=== PATIENT | female | born 1995 | race Two or more races ===

== ENCOUNTER 2022-05-19 12:40 | Emergency (ER) | payer OTHER ==
[2022-05-19 13:00] VITALS: TEMP 98.2; BMI 41.3
[2022-05-19 14:34] LABS: URINE APPEARANCE TURBID; URINE BILIRUBIN NEGATIVE (NEGATIVE); URINE COLOR YELLOW; URINE GLUCOSE (UA) NEGATIVE (NEGATIVE); URINE KETONE NEGATIVE (NEGATIVE); URINE LEUK ESTERASE NEGATIVE (NEGATIVE); URINE NITRITE NEGATIVE (NEGATIVE); URINE PROTEIN TRACE (NEGATIVE); URINE UROBILINOGEN 0.2 mg/dL (0.2-1.0)
[2022-05-19 15:07] VITALS: BP 128/68; PULSE 81; RESP 19
== END 2022-05-19 15:07 | disposition home or self-care (01) ==
LOC: JERFT 12:40 → JER 12:40 → JERFT 15:07
DX: O16.9 Unspecified maternal hypertension, unspecified trimester (principal); Z3A.00 Weeks of gestation of pregnancy not specified
CPT/HCPCS: 81003; 87086; 99283-25

== ENCOUNTER 2022-06-01 04:30 | Day surgery (SDC) | payer OTHER ==
[2022-05-31 19:36] VITALS: BMI 41.0
[2022-06-01] MEDS ORDERED: PROPOFOL 20 ML ONE (15:05)
[2022-06-01] MEDS ORDERED: MIDAZOLAM HCL 2 MG/2 ML SINGLE DOSE VIAL ONE (15:05)
[2022-06-01] MEDS ORDERED: LIDOCAINE HCL/PF 2% SDV 5ML VIAL ONE (15:05)
[2022-06-01] MEDS ORDERED: ceFAZolin SODIUM 1 GM VIAL IVPB ONE (15:18)
[2022-06-01] MEDS ORDERED: ACETAMINOPHEN 325 MG TABLET (FP) PO PRN (15:43)
[2022-06-01] MEDS ORDERED: IBUPROFEN 400 MG TABLET (FP) PO PRN (15:43)
[2022-06-01] MEDS ORDERED: ONDANSETRON 4 MG/2 ML VIAL IVPUSH PRN (15:45)
[2022-06-01] MEDS ORDERED: LACTATED RINGERS SOLUTION 1,000 ML IV SCH (15:45)
[2022-06-01] MEDS ORDERED: ACETAMINOPHEN 1000 MG/100 ML BAG IVPB ONE (15:45)
[2022-06-01] MEDS ORDERED: RHO(D) IMMUNE GLOBULIN 1,500 UNIT DISP.SYRIN IM ONE (15:45)
[2022-06-01 18:06] VITALS: RESP 16
[2022-06-01 18:44] VITALS: BP 131/77; PULSE 71; TEMP 97.8
== END 2022-06-01 18:50 | disposition home or self-care (01) ==
LOC: JASU-SURG 04:30
PROVIDERS: ATTEND Specialist
PROC: 10A07Z6 Abortion of Products of Conception, Vacuum, Via Natural or Artificial Opening (ICD-10-PCS; principal; 2022-06-01 13:00)
DX: Z33.2 Encounter for elective termination of pregnancy (principal)
CPT/HCPCS: 86999; 88305-TC; 94760; J1561

== ENCOUNTER 2023-03-21 04:51 | Day surgery (SDC) | payer OTHER ==
[2023-03-15 09:07] VITALS: BMI 41.3
[2023-03-21 08:24] VITALS: RESP 18
[2023-03-21 10:46] VITALS: BP 110/62; PULSE 73; TEMP 100
== END 2023-03-21 10:30 | disposition home or self-care (01) ==
LOC: JASU-ENDO 04:51
PROVIDERS: ATTEND Student in an Organized Health Care Education/Training Program
PROC: 0DB68ZX Excision of Stomach, Via Natural or Artificial Opening Endoscopic, Diagnostic (ICD-10-PCS; principal; 2023-03-21 09:00)
DX: K29.50 Unspecified chronic gastritis without bleeding (principal); K20.90 Esophagitis, unspecified without bleeding
CPT/HCPCS: 81025; 88305-TC; 88342-TC

== ENCOUNTER 2025-05-04 20:26 | Emergency (ER) | payer OTHER ==
[2025-05-04 20:32] VITALS: RESP 18; BMI 42.3
[2025-05-04 22:02] VITALS: TEMP 97.9
[2025-05-04] MEDS ORDERED: LABETALOL HCL 200 MG TABLET (FP) ONE (22:14)
[2025-05-04] MEDS: LABETALOL HCL 200 MG TABLET (FP) PO ONE (22:15)
[2025-05-04 22:30] LABS: ABSOLUTE IMMATURE GRANULOCYTES 0.05 x10^3/uL (0.0-0.031); BASOPHILS # 0.05 x10^3/uL (0.01-0.08); EOSINOPHIL % 3.4 % (0.7-5.8); EOSINOPHILS # 0.42 x10^3/uL (0.04-0.36); MCHC 32.7 g/dl (32.2-35.5); MEAN CELL VOLUME 87.0 fl (79.4-94.8); MEAN PLT VOLUME 9.6 fl (9.4-12.3); MONOCYTE # 0.82 x10^3/uL (0.24-0.86); MONOCYTE % 6.7 % (4.7-12.5); RDW 13.0 % (12.1-16.5)
[2025-05-04] MEDS ORDERED: LABETALOL HCL 200 MG TABLET (FP) PO ONE (22:45)
[2025-05-04 23:11] LABS: GLUCOSE,RANDOM 77.0 mg/dL (74-106); TOT PROT 6.6 g/dl (6.4-8.2)
[2025-05-04 23:12] LABS: CO2 23.0 mmol/L (21-32)
[2025-05-04 23:14] LABS: ALK PHOS 97.0 U/L (40-150)
[2025-05-04 23:17] LABS: CREATININE 0.54 mg/dL (0.55-1.3); SGOT/AST 22.0 U/L (5-34); SGPT/ALT 17.0 U/L (0-55)
[2025-05-05 00:29] VITALS: BP 155/89; PULSE 64
== END 2025-05-05 00:17 | disposition home or self-care (01) ==
LOC: JER 20:26 → UNDOADMIN 20:58 → JERBED 20:58 → JER 05-05 00:17
DX: O10.912 Unspecified pre-existing hypertension complicating pregnancy, second trimester (principal); Z3A.27 27 weeks gestation of pregnancy
CPT/HCPCS: 36415; 80053; 82570; 84156; 84550; 85025; 99283-25

== ENCOUNTER 2025-05-06 15:41 | Inpatient (IN) | payer OTHER ==
[2025-05-06] MEDS ORDERED: LABETALOL HCL 200 MG TABLET (FP) ONE ×2 (16:23→20:50)
[2025-05-06] MEDS: LABETALOL HCL 200 MG TABLET (FP) PO ONE (16:25)
[2025-05-06 16:58] LABS: MCHC 32.3 g/dl (32.2-35.5); MEAN CELL VOLUME 87.1 fl (79.4-94.8); MEAN PLT VOLUME 9.6 fl (9.4-12.3); RDW 13.0 % (12.1-16.5)
[2025-05-06 17:19] LABS: GLUCOSE,RANDOM 68.0 mg/dL (74-106); TOT PROT 6.0 g/dl (6.4-8.2)
[2025-05-06 17:20] LABS: CO2 21.0 mmol/L (21-32)
[2025-05-06 17:22] LABS: ALK PHOS 95.0 U/L (40-150)
[2025-05-06 17:24] LABS: SGPT/ALT 15.0 U/L (0-55)
[2025-05-06 17:25] LABS: CREATININE 0.51 mg/dL (0.55-1.3); SGOT/AST 23.0 U/L (5-34)
[2025-05-06] MEDS ORDERED: BETAMET ACET/BETAMET NA PH 30 MG/5 ML VIAL ONE (17:57)
[2025-05-06] MEDS ORDERED: LABETALOL HCL 20 MG/4 ML VIAL ONE (17:57)
[2025-05-06] MEDS ORDERED: LABETALOL HCL 5 MG/1 ML (100MG/20 ML VIAL) IVPUSH PRN ×2 (18:33→18:45)
[2025-05-06] MEDS: BETAMET ACET/BETAMET NA PH 30 MG/5 ML VIAL IM ONE (18:35)
[2025-05-06] MEDS: LABETALOL HCL 20 MG/4 ML VIAL IVPUSH ONE (19:08)
[2025-05-06] MEDS: LABETALOL HCL 200 MG TABLET (FP) PO SCH (21:00)
[2025-05-06 21:49] VITALS: BMI 41.0
[2025-05-07] MEDS ORDERED: LABETALOL HCL 200 MG TABLET (FP) ONE ×2 (05:54→14:21)
[2025-05-07 11:30] LABS: INR 1.05 (0.83-1.09); PROTHROMBIN TIME (PATIENT) 11.6 SEC (9.7-13.0)
[2025-05-07 11:33] LABS: ACTIVATED PTT 29.5 SECONDS (25.2-36.5)
[2025-05-07] MEDS: RHO(D) IMMUNE GLOBULIN 1,500 UNIT DISP.SYRIN IM ONE (12:49)
[2025-05-07 14:37] VITALS: RESP 17
[2025-05-07 18:00] VITALS: TEMP 98.4
[2025-05-07] MEDS ORDERED: BETAMET ACET/BETAMET NA PH 30 MG/5 ML VIAL ONE (18:13)
[2025-05-07] MEDS: BETAMET ACET/BETAMET NA PH 30 MG/5 ML VIAL IM ONE (18:20)
[2025-05-07 18:43] VITALS: BP 148/95; PULSE 77
== END 2025-05-07 18:40 | disposition short-term general hospital (02) | DRG 566 ==
LOC: JDEL 15:41 → JLDR 19:12 → OBSVTOIN 20:00
PROVIDERS: ADMIT Obstetrics & Gynecology; ATTEND Obstetrics & Gynecology
PROC: 3E0334Z Introduction of Serum, Toxoid and Vaccine into Peripheral Vein, Percutaneous Approach (ICD-10-PCS; principal; 2025-05-07)
DX: O11.3 Pre-existing hypertension with pre-eclampsia, third trimester (principal); O36.0930 Maternal care for other rhesus isoimmunization, third trimester, not applicable or unspecified; Z3A.28 28 weeks gestation of pregnancy
CPT/HCPCS: 36415; 80053; 82570; 82962; 82977; 83010; 84156; 84550; 85025; 85027; 85610; 85730; 86780; 86850; 86900; 86901; 96372; G0378; J2790